=== PATIENT | male | born 1930 | race Caucasian/White ===

== ENCOUNTER 2019-12-13 22:32 | Emergency (ER) | payer MEDICARE, BC ==
[~2019-12-13] VITALS: Ht 180.3 cm; Wt 72.7 kg
[~2019-12-13 22:32] MED LIST: ACET-1008 PO; AMOX-580 PO; HYDR-3972 PO; NO HOME MEDS
--- NOTE | 2019-12-13 23:00 | NUR ---
pt placed in c spine as ordered
[2019-12-13] MEDS ORDERED: LIDOcaine/epinephrine/tetracaine TOPICAL sol 3 ML syringe TOP ONE (23:05)
--- NOTE | 2019-12-13 23:09 | NUR ---
pt to ct
[2019-12-13] MEDS ORDERED: tranexamic acid 1gm/0.7% sal. 100 ML IV ONE (23:55)
[2019-12-13] MEDS ORDERED: levetiracetam-NS 1000mg/100ml 100 ML IV ONE (23:55)
[2019-12-13] MEDS ORDERED: levetiracetam inj 1,000 MG in normal saline 100ml IV soln 90 ML IV ONE (23:55)
[2019-12-13] MEDS ORDERED: tranexamic acid 100mg/ml inj. IV ONE (23:55)
[2019-12-14 00:24] LABS: EOSINOPHILS # (AUTO) 0.2 X10'3 (0-0.9); HEMOGLOBIN 13.6 g/dl (14.0-17.9)
[2019-12-14 00:26] LABS: BASOPHILS # (AUTO) 0.1 X10'3 (0-0.2); BASOPHILS % (AUTO) 0.8 % (0-1); EOSINOPHILS % (AUTO) 1.7 % (0-6); HEMATOCRIT 41.4 % (42.0-52.0); LYMPHOCYTES # (AUTO) 2.7 X10'3 (1.1-4.8); LYMPHOCYTES % (AUTO) 23.5 % (21-51); MEAN CORPUSCULAR HEMOGLOBIN 33.3 PG (27.0-31.0); MEAN CORPUSCULAR HGB CONC 32.8 g/dL (33.0-36.5); MEAN CORPUSCULAR VOLUME 101.6 FL (78-98); MEAN PLATELET VOLUME 7.6 FL (7.4-10.4); MONOCYTES # (AUTO) 0.7 X10'3 (0-0.9); MONOCYTES % (AUTO) 5.9 % (2-12); NEUTROPHILS # (AUTO) 7.8 X10'3 (1.8-7.7); NEUTROPHILS % (AUTO) 68.1 % (42-75); PLATELET COUNT 242 X10'3 (140-440); RED BLOOD COUNT 4.08 X10'6 (4.70-6.10); RED CELL DISTRIBUTION WIDTH 14.1 % (11.5-14.5); WHITE BLOOD COUNT 11.4 X10'3 (4.5-11.0)
[2019-12-14 00:38] LABS: ALANINE AMINOTRANSFERASE 43 U/L (12-78); ALBUMIN 3.2 G/DL (3.4-5.0); ALBUMIN/GLOBULIN RATIO 0.8 (1.1-1.5); ALKALINE PHOSPHATASE 120 IU/L (46-116); ANION GAP 9 (8-16); ASPARTATE AMINO TRANSFERASE 38 U/L (10-37); BILIRUBIN,TOTAL 0.4 MG/DL (0.1-1.0); BLOOD UREA NITROGEN 22 MG/DL (7-18); BUN/CREATININE RATIO 20.8 (5.4-32.0); CHLORIDE 106 MMOL/L (99-107); CREATININE 1.06 MG/DL (0.60-1.10); GLUCOSE 169 MG/DL (70-104); POTASSIUM 4.3 MMOL/L (3.5-5.1); SODIUM 143 MMOL/L (135-145); TOTAL PROTEIN 7.4 G/DL (6.4-8.2); eGFR 66 ML/MIN
[2019-12-14] MEDS ORDERED: bacitracin 15gm ointment TP ONE (00:45)
[2019-12-14 01:07] VITALS: BP 128/76
== END 2019-12-14 01:10 | disposition short-term general hospital (02) ==
LOC: ER 22:33
DX: S00.93XA Contusion of unspecified part of head, initial encounter (principal); M25.512 Pain in left shoulder; W18.39XA Other fall on same level, initial encounter; Y93.89 Activity, other specified; Y92.89 Other specified places as the place of occurrence of the external cause; Y99.8 Other external cause status
CPT/HCPCS: 36415; 70450; 72125; 80053; 85025; 85610; 93005; 96374; 96375; 99285; J1953; 96365